=== PATIENT | female | born 1975 | race Caucasian/White ===

== ENCOUNTER 2017-10-01 16:43 | Emergency (ER) | payer OTHER ==
[2017-10-01 16:43] VITALS: BMI 38.4
[2017-10-01 16:48] VITALS: BP 122/82; PULSE 80; RESP 20; TEMP 98.1; O2SAT 95
--- NOTE | 2017-10-01 17:53 | CT ---
PROCEDURE: CT HEAD WITHOUT CONTRAST. HISTORY: dizziness COMPARISON: Noncontrast head CT performed 07/13/16 TECHNIQUE: Axial computed tomography images were obtained through the head/brain without intravenous contrast. Radiation dose: Total exam DLP = 890.91 mGy-cm. This CT exam was performed using one or more of the following dose reduction techniques: Automated exposure control, adjustment of the mA and/or kV according to patient size, and/or use of iterative reconstruction technique. FINDINGS: HEMORRHAGE: No intracranial hemorrhage. BRAIN: No mass effect or edema. The hernandez-white matter differentiation appears intact. Please note that MRI with diffusion imaging is more sensitive in the detection of acute ischemic event. VENTRICLES: No hydrocephalus. CALVARIUM: Unremarkable. PARANASAL SINUSES: Mucosal thickening of the ethmoid air cells. Remainder the visualized paranasal sinuses appear otherwise unremarkable. MASTOID AIR CELLS: Unremarkable as visualized. No inflammatory changes. OTHER FINDINGS: None. IMPRESSION: No acute intracranial pathology identified. Findings as above.
--- NOTE | 2017-10-01 18:02 | C.PDOC ---
History Of Present Illness 41 yr old female presents to the ER with complaints of intermittent headache for the past 1 year. Patient has been seen in the past for same complaint but has not had a definitive diagnoses or proper follow up. Patient states the headache is gradual. Denies thunderclap explosion, trauma, vision changes, nausea, vomiting, neck pain, weakness or numbness. Time Seen by Provider: 10/01/17 16:54 Chief Complaint (Nursing): Headache History Per: Patient History/Exam Limitations: no limitations Onset/Duration Of Symptoms: Intermittent Episodes (1 year) Past Medical History Reviewed: Historical Data, Nursing Documentation, Vital Signs Vital Signs: Last Vital Signs Temp 98.1 F 10/01/17 16:45 Pulse 80 10/01/17 16:45 Resp 20 10/01/17 16:45 BP 122/82 10/01/17 16:45 Pulse Ox 95 10/01/17 18:07 - Medical History PMH: Anemia - [facility] EXTRACTION OF POC, LOW CERVICAL, OPEN APPROACH (11/29/15) Family History: States: No Known Family Hx - Social History Hx Alcohol Use: No Hx Substance Use: No - Immunization History Hx Tetanus Toxoid Vaccination: No Hx Influenza Vaccination: No Hx Pneumococcal Vaccination: No Review Of Systems Except As Marked, All Systems Reviewed And Found Negative. Eyes: Negative for: Vision Change Gastrointestinal: Negative for: Nausea, Vomiting Musculoskeletal: Negative for: Neck Pain Neurological: Positive for: Headache. Negative for: Weakness, Numbness Physical Exam - Physical Exam Appears: Non-toxic, No Acute Distress Skin: Warm, Dry, No Rash Head: Atraumatic, Normacephalic Eye(s): bilateral: Normal Inspection, PERRL, EOMI Ear(s): Bilateral: Normal Oral Mucosa: Moist Neck: Normal, Normal ROM, Supple Cardiovascular: Rhythm Regular, No Murmur Respiratory: Normal Breath Sounds, No Rales, No Rhonchi, No Stridor, No Wheezing Extremity: Normal ROM, No Swelling Neurological/Psych: Oriented x3, Normal Speech ED Course And Treatment O2 Sat by Pulse Oximetry: 95 (RA) Pulse Ox Interpretation: Normal - CT Scan/US CT - Head Other Rad Studies (CT/US): Read By Radiologist, Radiology Report Reviewed CT/US Interpretation: PROCEDURE: CT HEAD WITHOUT CONTRAST. HISTORY: dizziness. COMPARISON: Noncontrast head CT performed 07/13/16. TECHNIQUE: Axial computed tomography images were obtained through the head/brain without intravenous contrast. Radiation dose: Total exam DLP = 890.91 mGy-cm. This CT exam was performed using one or more of the following dose reduction techniques: Automated exposure control, adjustment of the mA and/or kV according to patient size, and/or use of iterative reconstruction technique. FINDINGS: HEMORRHAGE: No intracranial hemorrhage. BRAIN: No mass effect or edema. The hernandez-white matter differentiation appears intact. Please note that MRI with diffusion imaging is more sensitive in the detection of acute ischemic event. VENTRICLES: No hydrocephalus. CALVARIUM: Unremarkable. PARANASAL SINUSES: Mucosal thickening of the ethmoid air cells. Remainder the visualized paranasal sinuses appear otherwise unremarkable. MASTOID AIR CELLS: Unremarkable as visualized. No inflammatory changes. OTHER FINDINGS: None. IMPRESSION: No acute intracranial pathology identified. Findings as above. Medical Decision Making Medical Decision Making: IMPRESSION: Sinus headache PLAN: * CT - Head * Tramadol PO NOTE: * Patient is treated with Tramadol * On reevaluation, patient reports improvement of symptoms * Patient is stable for discharge and follow up instructions are given Disposition Counseled Patient/Family Regarding: Studies Performed, Diagnosis, Need For Followup, Rx Given - Disposition Referrals: Nicolas Jones MD [Staff Provider] - Disposition: HOME/ ROUTINE Disposition Time: 18:01 Condition: STABLE Additional Instructions: follow up with your doctor in 2 days call to make an appointment take medications as prescribed return to ER if symptoms worsens or progress Prescriptions: Naproxen [Naprosyn] 500 mg PO BID PRN #16 tab PRN Reason: Pain, Moderate (4-7) Pseudoephedrine HCl [Sudafed] 30 mg PO QID PRN #16 tablet PRN Reason: Migraine Headache Instructions: Headache, Adult, Sinus Headache (DC) Forms: [facility] (Swedish), General Discharge Instructions - Clinical Impression Clinical Impression: Headache, Sinus congestion - Scribe Statement The provider has reviewed the documentation as recorded by the Jesus Manuel Perez Provider Attestation: All medical record entries made by the Vaneibnoel were at my direction and personally dictated by me. I have reviewed the chart and agree that the record accurately reflects my personal performance of the history, physical exam, medical decision making, and the department course for this patient. I have also personally directed, reviewed, and agree with the discharge instructions and disposition.
== END 2017-10-01 18:15 | disposition home or self-care (01) ==
LOC: C.ER 16:43
DX: R51 Headache (principal); R09.81 Nasal congestion